=== PATIENT | female | born 1965 | race Caucasian/White ===

== ENCOUNTER 2018-08-19 01:28 | Emergency (ER) | payer OTHER ==
[~2018-08-19] VITALS: Ht 160 cm; Wt 72.6 kg
--- NOTE | 2018-08-19 01:43 | PHYS DOC ---
Adult General Chief Complaint Chief Complaint: fall HPI HPI 52-year-old female presents via EMS after fall down stairs. 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 She was on a staircase when her left knee "gave out" and caused the patient to fall. She believes she fell down 8 or 9 stairs. She fell anatomically normal fashion. She currently has left-sided neck pain, lumbar pain, and left knee pain. Patient denies loss of consciousness. She does not have any numbness or tingling. She denies loss of bowel or bladder. Review of Systems Review of Systems Constitutional: Denies fever or chills [] Eyes: Denies change in visual acuity, redness, or eye pain [] HENT: Denies nasal congestion or sore throat [] Respiratory: Denies cough or shortness of breath [] Cardiovascular: No additional information not addressed in HPI [] GI: Denies abdominal pain, nausea, vomiting, bloody stools or diarrhea [] : Denies dysuria or hematuria [] Musculoskeletal: Neck pain, left knee pain, lumbar pain [] Integument: Denies rash or skin lesions [] Neurologic: Denies headache, focal weakness or sensory changes [] Endocrine: Denies polyuria or polydipsia [] All other systems were reviewed and found to be within normal limits, except as documented in this note. Physical Exam Physical Exam Constitutional: Well developed, well nourished, no acute distress, non-toxic appearance. [] HENT: Normocephalic, atraumatic, bilateral external ears normal, oropharynx moist, no oral exudates, nose normal. [] Eyes: PERRLA, EOMI, conjunctiva normal, no discharge. [] Neck: In a c-collar.. [] Cardiovascular:Heart rate regular rhythm, no murmur [] Lungs & Thorax: Bilateral breath sounds clear to auscultation [] Abdomen: Bowel sounds normal, soft, no tenderness, no masses, no pulsatile masses. [] Skin: Warm, dry, no erythema, no rash. [] Back: Lumbar tenderness.[] Extremities: Left knee tenderness to palpation, no obvious deformity, no ecchymosis.[] Neurologic: Alert and oriented X 3, normal motor function, normal sensory function, no focal deficits noted. [] Psychologic: Affect normal, judgement normal, mood normal. [] EKG EKG [] Radiology/Procedures Radiology/Procedures [] Impressions: Examination: CT head and cervical spine without contrast CT HEAD INDICATION: Fall down the stairs COMPARISON: None Available. Exposure: One or more of the following individualized dose reduction techniques were utilized for this examination: 1. Automated exposure control 2. Adjustment of the mA and/or kV according to patient size 3. Use of iterative reconstruction technique TECHNIQUE: 5 mm contiguous axial images were obtained from the skull base to the vertex in both bone and soft tissue algorithm. FINDINGS: No abnormal attenuation within the brain parenchyma. No evidence of acute intracranial hemorrhage. No extra-axial fluid collections. No mass effect or midline shift. Ventricular size is appropriate. Basal cisterns are patent. No fractures identified.Gomez-white differentiation is preserved.Globes and orbits are within normal limits. Paranasal sinuses and mastoid air cells are clear. IMPRESSION: No acute intracranial findings. CT CERVICAL SPINE INDICATION: Fall down the stairs COMPARISON: None Available. Technique: 2.5 mm contiguous axial images were obtained from the skull base through the cervicothoracic junction in both bone and soft tissue algorithm. Additional sagittal and coronal reconstructions were also performed. FINDINGS: Vertebral body height and alignment are maintained. Cervical lordosis is preserved. The lateral masses of C1 are aligned upon C2. No fractures identified. The bony canal is patent throughout. Moderate intervertebral disc height loss identified at C5-C6, C6-C7 vertebral levels with small anterior and posterior osteophyte formation. The paraspinous soft tissues are unremarkable. Visualized intracranial contents are unremarkable. Lung apices are clear. Bilateral elongated styloid processes. IMPRESSION: 1. No acute fracture of the cervical spine. Correlate clinically. 2. Moderate degenerative changes cervical spine. Electronically signed by: Edgar Lutz MD (08/19/2018 2:57 AM) [facility] DICTATED AND SIGNED BY: EDGAR LUTZ MD DATE: 08/19/18 0257 CC: DUSTIN BAILEY DO; OTIS OSBORN MD ~ Course & Med Decision Making Course & Med Decision Making Pertinent Labs and Imaging studies reviewed. (See chart for details) The patient's head and cervical spine CT are negative for acute findings or fracture. Her lumbar and knee films are negative for fracture. I have given the patient Norflex IV, 30 mg of Toradol IV, and one [place] 5/325 by mouth. I will discharge her with a prescription for Flexeril and [place]. She is stable for discharge at this time. [] Dragon Disclaimer Dragon Disclaimer This electronic medical record was generated, in whole or in part, using a voice recognition dictation system. Departure Departure: Impression: Primary Impression: Fall down stairs Disposition: 01 HOME, SELF-CARE Condition: STABLE Patient Instructions: Contusion, [id number] Scripts Hydrocodone Bit/Acetaminophen (NORCO 5-325 TABLET) 1 Each Tablet 1 TAB PO PRN Q6HRS PRN for PAIN, #10 TAB 0 Refills Prov: DUSTIN BAILEY DO 08/19/18 Cyclobenzaprine Hcl (CYCLOBENZAPRINE HCL) 10 Mg Tablet 1 TAB PO TID PRN for MUSCLE SPASMS, #30 TAB Prov: DUSTIN BAILEY DO 08/19/18 Problem Qualifiers Primary Impression: Fall down stairs Encounter type: initial encounter Qualified Codes: W10.8XXA - Fall (on) (from) other stairs and steps, initial encounter DUSTIN BAILEY DO August 19, 2018 01:43
[2018-08-19] MEDS ORDERED: CYCL-331 PO (02:35)
[2018-08-19] MEDS ORDERED: HYDR-3165 PO (02:35)
[2018-08-19] MEDS: ORPHENADRINE CITRATE 60 MG/2 ML VIAL. IV ONE (02:53)
[2018-08-19] MEDS: HYDROcodone/APAP 5/325MG 1 TAB TABLET PO ONE (02:53)
[2018-08-19] MEDS: KETOROLAC 30 MG/ML VIAL. IV ONE (02:54)
--- NOTE | 2018-08-19 03:00 | RAD ---
Examination: CT head and cervical spine without contrast CT HEAD INDICATION: Fall down the stairs COMPARISON: None Available. Exposure: One or more of the following individualized dose reduction techniques were utilized for this examination: 1. Automated exposure control 2. Adjustment of the mA and/or kV according to patient size 3. Use of iterative reconstruction technique TECHNIQUE: 5 mm contiguous axial images were obtained from the skull base to the vertex in both bone and soft tissue algorithm. FINDINGS: No abnormal attenuation within the brain parenchyma. No evidence of acute intracranial hemorrhage. No extra-axial fluid collections. No mass effect or midline shift. Ventricular size is appropriate. Basal cisterns are patent. No fractures identified.Gomez-white differentiation is preserved.Globes and orbits are within normal limits. Paranasal sinuses and mastoid air cells are clear. IMPRESSION: No acute intracranial findings. CT CERVICAL SPINE INDICATION: Fall down the stairs COMPARISON: None Available. Technique: 2.5 mm contiguous axial images were obtained from the skull base through the cervicothoracic junction in both bone and soft tissue algorithm. Additional sagittal and coronal reconstructions were also performed. FINDINGS: Vertebral body height and alignment are maintained. Cervical lordosis is preserved. The lateral masses of C1 are aligned upon C2. No fractures identified. The bony canal is patent throughout. Moderate intervertebral disc height loss identified at C5-C6, C6-C7 vertebral levels with small anterior and posterior osteophyte formation. The paraspinous soft tissues are unremarkable. Visualized intracranial contents are unremarkable. Lung apices are clear. Bilateral elongated styloid processes. IMPRESSION: 1. No acute fracture of the cervical spine. Correlate clinically. 2. Moderate degenerative changes cervical spine. Electronically signed by: Edgar Lutz MD (08/19/2018 2:57 AM) [place] [id number]
[2018-08-19 03:03] LABS: BASO % 0 % (0-3); EOS # 0.4 x10^3/uL (0.0-0.7); EOS % 4 % (0-3); HEMATOCRIT 45.5 % (36.0-47.0); HEMOGLOBIN 15.7 g/dL (12.0-15.5); LYMPH # 2.4 x10^3/uL (1.0-4.8); LYMPH % 24 % (24-48); MEAN CORPUSCULAR HEMOGLOBIN 29 pg (25-35); MEAN CORPUSCULAR HGB CONC 35 g/dL (31-37); MEAN CORPUSCULAR VOLUME 85 fL (79-100); MONO # 0.9 x10^3/uL (0.0-1.1); MONO % 9 % (0-9); NEUT # 6.3 x10^3uL (1.8-7.7); NEUT % 62 % (31-73); PLATELET COUNT 207 x10^3/uL (140-400); RED BLOOD COUNT 5.38 x10^6/uL (3.50-5.40); RED CELL DISTRIBUTION WIDTH 14.2 % (11.5-14.5); WHITE BLOOD COUNT 10.1 x10^3/uL (4.0-11.0)
[2018-08-19 03:04] VITALS: BP 105/69
[2018-08-19 03:07] LABS: ALBUMIN 3.4 g/dL (3.4-5.0); ALBUMIN/GLOBULIN RATIO 0.9 (1.0-1.7); CALCIUM 9.3 mg/dL (8.5-10.1); CREATININE 0.8 mg/dL (0.6-1.0); GFR 74.7; POTASSIUM 3.9 mmol/L (3.5-5.1); TOTAL BILIRUBIN 0.4 mg/dL (0.2-1.0); TOTAL PROTEIN 7.3 g/dL (6.4-8.2)
[2018-08-19 03:08] LABS: BACTERIA,URINE FEW /HPF (0-FEW); BILIRUBIN,URINE NEG (NEG); CLARITY,URINE CLEAR; COLOR,URINE YELLOW; GLUCOSE,URINE NEG (NEG); NITRITE,URINE NEG (NEG); RBC,URINE OCC /HPF (0-2); SQUAMOUS EPITHELIAL CELL,UR MOD /LPF; UROBILINOGEN,URINE 0.2 mg/dL (0.2 mg/dL)
--- NOTE | 2018-08-19 06:19 | RAD ---
Examination: 3 views of the left knee and 2 views of the lumbar spine HISTORY: History of fall COMPARISON: Lumbar spine from 07/03/2009 FINDINGS: There is moderate joint space loss identified in the medial, lateral, patellofemoral compartments. No significant knee joint effusion is identified. Mild intervertebral disc height loss identified in the lumbar spine. Moderate intervertebral disc height loss identified in the lower thoracic spine likely degeneration. Minimal compression views of lower thoracic and upper vertebral bodies similar to prior exam likely chronic changes. The facets are well aligned. IMPRESSION: 1. No acute osseous findings. 2. Moderate degenerative changes lumbar spine Electronically signed by: Edgar Lutz MD (08/19/2018 6:16 AM) [facility]
== END 2018-08-19 03:20 | disposition home or self-care (01) ==
LOC: ER 01:28
DX: M54.2 Cervicalgia (principal); M54.5 Low back pain; M25.562 Pain in left knee; G89.11 Acute pain due to trauma; W10.8XXA Fall (on) (from) other stairs and steps, initial encounter; Y93.89 Activity, other specified; Y92.148 Other place in prison as the place of occurrence of the external cause; Y99.0 Civilian activity done for income or pay
CPT/HCPCS: 36415; 70450; 72100; 72125; 73562; 80053; 81001; 85025; 96374; 96375; 99285; J1885; J2360